=== PATIENT | male | born 1975 ===

== ENCOUNTER 2017-04-07 01:00 | Emergency (ER) | payer OTHER ==
[~2017-04-07] VITALS: Ht 175.3 cm; Wt 110.7 kg
[2017-04-07 02:25] LABS: Calcium, Ionized (POC) 1.14 mmol/L (1.10-1.46); Chloride (POC) 101 mmol/L (98-108); Creatinine (POC) 0.9 mg/dL (0.8-1.3); Glucose (ISTAT POC) 312 mg/dL (70-99); Hemoglobin (POC) 16.3 g/dL (13.5-17.5); Potassium (POC) 4.2 mmol/L (3.5-5.5); Sodium (POC) 141 mmol/L (135-148); Total CO2 (POC) 27 mmol/L (21-32)
== END 2017-04-07 02:47 | disposition home or self-care (01) ==
LOC: ER 01:00
PROVIDERS: Emergency Medicine
DX: E11.65 Type 2 diabetes mellitus with hyperglycemia (principal); F17.200 Nicotine dependence, unspecified, uncomplicated
CPT/HCPCS: 36415; 80047; 82947; 85014; 99283

== ENCOUNTER 2023-01-24 12:51 | Emergency (ER) | payer OTHER ==
[~2023-01-24] VITALS: Ht 172.7 cm; Wt 106.6 kg
[2023-01-24 13:15] LABS: BASOPHILS ABSOLUTE AUTO 0.09 K/mm3 (0.00-0.23); BASOPHILS PERCENT AUTO 1 % (0-2); EOSINOPHILS PERCENT AUTO 4 % (0-6); Hematocrit 45.9 % (37.0-53.0); Hemoglobin 14.9 g/dL (13.5-17.5); IMMATURE GRAN ABSOLUTE AUTO 0.03 K/mm3 (0.00-0.10); IMMATURE GRAN PERCENT AUTO 0 % (0-1); LYMPHOCYTES ABSOLUTE AUTO 2.75 K/mm3 (0.84-5.20); LYMPHOCYTES PERCENT AUTO 29 % (21-46); MONOCYTES ABSOLUTE AUTO 0.56 K/mm3 (0.16-1.47); MONOCYTES PERCENT AUTO 6 % (4-13); Mean Corpuscular HGB Conc 32.5 g/dL (31.5-36.5); Mean Corpuscular Volume 80 fL (80-100); Mean Platelet Volume 10.8 fL (9.1-12.4); NEUTROPHILS ABSOLUTE AUTO 5.72 K/mm3 (1.96-9.15); NEUTROPHILS PERCENT AUTO 60 % (41-73); Platelet Count 192 K/mm3 (150-400); RDW Coefficient Variation 13.7 % (11.7-14.2); RDW Standard Deviation 39.8 fL (35.1-46.3); Red Blood Cell Count 5.74 M/mm3 (4.30-5.90); White Blood Cell Count 9.55 K/mm3 (4.00-11.30)
[2023-01-24 14:04] LABS: Albumin, Blood 3.8 g/dL (3.4-5.0); Albumin/Globulin Ratio 1.1 (0.8-1.8); Bilirubin, Total 0.6 mg/dL (0.1-1.0); Bun/Creatinine Ratio 15.3 (12.0-20.0); Calcium, Blood 9.1 mg/dL (8.5-10.1); Creatinine, Blood 0.91 mg/dL (0.60-1.20); Globulin, Blood 3.6 g/dL (2.2-4.0); Potassium, Blood 3.7 mmol/L (3.5-5.5); Total Protein, Blood 7.4 g/dL (6.4-8.2)
[2023-01-24] MEDS ORDERED: CHOLESTEROL MED (15:29)
[2023-01-24] MEDS ORDERED: METF500 PO (15:29)
[2023-01-24] MEDS ORDERED: OMEP20ER (15:29)
[2023-01-24 16:21] VITALS: BP 162/89
[2023-01-24] MEDS ORDERED: Crestor20 MG PO (16:28)
[2023-01-24 16:54] LABS: CHOL/HDL RATIO 6.3; Cholesterol 232 mg/dL (50-200); HDL Cholesterol 37 mg/dL (>39); LDL/HDL RATIO 3.7; Low Density Lipoprotein Chol 137 mg/dL (0-110); Triglycerides 290 mg/dL (30-160); Very Low Density Lipoprot Chol 58 mg/dL (6-32)
== END 2023-01-24 18:00 | disposition home or self-care (01) ==
LOC: ER 12:51
PROVIDERS: Emergency Medicine; Family Medicine
DX: R07.89 Other chest pain (principal); E11.9 Type 2 diabetes mellitus without complications; E78.5 Hyperlipidemia, unspecified; F17.210 Nicotine dependence, cigarettes, uncomplicated; Z79.84 Long term (current) use of oral hypoglycemic drugs; Z79.899 Other long term (current) drug therapy
CPT/HCPCS: 71046; 80053; 80061; 83690; 84443; 84484; 85025; 93005; 93010; 99285-25; A9270